=== PATIENT | female | born 1990 ===

== ENCOUNTER 2017-06-28 01:06 | Emergency (ER) | payer OTHER ==
[~2017-06-28] VITALS: Ht 154.9 cm; Wt 69.9 kg
[~2017-06-28 01:06] MED LIST: IBUPROFEN800 MG PO; IMODIUM A-D2 MG PO; ORPH100T PO; PEPCID AC20 MG PO
[2017-06-28] MEDS ORDERED: LEVSIN/SL0.125 MG SL (06:04)
== END 2017-06-28 06:23 | disposition home or self-care (01) ==
LOC: ER 01:06
DX: R10.84 Generalized abdominal pain (principal)